=== PATIENT | female | born 1965 | race Caucasian/White ===

== ENCOUNTER → 2017-02-18 | Outpatient (CLI) | payer OTHER | LOC: FIMAGING 10:37 | PROVIDERS: ATTEND Obstetrics & Gynecology | DX: Z12.31 Encounter for screening mammogram for malignant neoplasm of breast (principal) | CPT/HCPCS: G0202 ==

== ENCOUNTER 2017-05-08 00:15 | Emergency (ER) | payer OTHER ==
[2017-05-08 00:26] VITALS: RESP 18
--- NOTE | 2017-05-08 01:17 | EDPHY ---
H & P Stated Complaint: TONIGHT: PAINFUL URINATION, NAUSEA,GROSS HEMATURIA Time Seen by Provider: 05/08/17 01:11 HPI/ROS: Chief Complaint: Urinary urgency frequency HPI: 51-year-old woman presenting with 1 day of increasing urgency and frequency and some hematuria. Has had some nausea but no vomiting. No fevers or chills. No back pain. No history of frequent UTIs in the past. ROS: 10 point Review of Systems is negative except as noted in the HPI. PMH: Bone Willebrand's disease, bipolar disorder, total abdominal hysterectomy Social History: No smoking, no alcohol, no recreational drug use Family History: non-contributory Physical Exam: Gen: Awake, Alert, No Distress HEENT: Nose: no rhinorrhea Eyes: PERRLA, EOMI Mouth: Moist mucosa Neck: Supple, no JVD Chest: nontender, lungs clear to auscultation Heart: S1, S2 normal, no murmur Abd: Soft, non-tender, no guarding Back: no CVA tenderness, no midline tenderness Ext: no edema, non-tender Skin: no rash Neuro: CN II-XII intact, Sensation grossly intact, Strength 5/5 in bilateral upper and lower extremities - Personal History LMP (Females 10-55): Hysterectomy Current Tetanus/Diphtheria Vaccine: Yes Tetanus Vaccine Date: 2014 - Medical/Surgical History Hx Asthma: No Hx Chronic Respiratory Disease: No Hx Diabetes: No Hx Cardiac Disease: No Hx Renal Disease: No Hx Cirrhosis: No Hx Alcoholism: No Hx HIV/AIDS: No Hx Splenectomy or Spleen Trauma: No Other PMH: UTERINE FIBROIDS,HERNIA, C-SSECT, PRGNANCY PSYCHOSIS, FX PELVIS WITH DELIVERY, HYSTERECOMY,. V[place]BRAN - FACTOR 8 BLEEDING DISORDER - Social History Smoking Status: Never smoked Constitutional: Initial Vital Signs Temperature (C) 36.6 C 05/08/17 00:19 Heart Rate 105 H 05/08/17 00:19 Respiratory Rate 18 05/08/17 00:19 Blood Pressure 176/135 H 05/08/17 00:19 O2 Sat (%) 99 05/08/17 00:19 O2 Delivery Mode Room Air Allergies/Adverse Reactions: azithromycin [From Zithromax] Allergy (Verified 05/08/17 00:19) doxycycline Allergy (Verified 05/08/17 00:19) Home Medications: Medication Instructions Recorded [place] Carbonate 05/08/17 Nitrofurantoin Monohyd/M-Cryst 100 mg PO BID #10 capsule 05/08/17 [Macrobid 100 mg Capsule] Phenazopyridine HCl [Pyridium] 200 mg PO TID #6 tab 05/08/17 Medical Decision Making - Data Points Laboratory Results: 05/08/17 00:30 Urine Color RED Urine Appearance HAZY Urine pH 7.0 (5.0-7.5) Ur Specific [place] 1.011 (1.002-1.030) Urine Protein 2+ H (NEGATIVE) Urine Ketones NEGATIVE (NEGATIVE) Urine Blood 2+ H (NEGATIVE) Urine Nitrate NEGATIVE (NEGATIVE) Urine Bilirubin NEGATIVE (NEGATIVE) Urine Urobilinogen NEGATIVE EU EU (0.2-1.0) Ur Leukocyte Esterase 1+ H (NEGATIVE) Urine RBC 50-182 /hpf H /hpf (0-3) Urine WBC 50-182 /hpf H /hpf (0-3) Ur Epithelial Cells TRACE /lpf /lpf (NONE-1+) Urine Bacteria 1+ /hpf H /hpf (NONE SEEN) Urine Glucose 1+ H (NEGATIVE) Departure - Departure Disposition: Home, Routine, Self-Care Clinical Impression: Urinary tract infection Condition: Good Instructions: Urinary Tract Infection in Women (ED), Nitrofurantoin Combination (By mouth) Additional Instructions: Please take her full course of antibiotics. Follow up with primary care physician in 4-5 days if symptoms are not improving. Referrals: Cris Mcmahon MD [Primary Care Provider] - As per Instructions Prescriptions: Nitrofurantoin Monohyd/M-Cryst [Macrobid 100 mg Capsule] 100 mg PO BID #10 capsule Phenazopyridine HCl [Pyridium] 200 mg PO TID #6 tab
[2017-05-08 01:25] LABS: COLOR RED; LEUKOCYTE ESTERASE,URINE 1+ (NEGATIVE); NITRITE,URINE NEGATIVE (NEGATIVE)
[2017-05-08 01:34] LABS: BACTERIA 1+ /hpf (NONE SEEN); RBC,URINE 50-182 /hpf (0-3); WBC,URINE 50-182 /hpf (0-3)
[2017-05-08] MEDS ORDERED: NITROFURANTOIN 100MG PREPACK#2 BTL TAKEHOME ONE (01:38)
[2017-05-08] MEDS ORDERED: PHENAZOPYRIDINE HCL 200 MG TAB PO ONE (01:39)
[2017-05-08 02:09] VITALS: BP 124/78; PULSE 62; TEMP 98.6; O2SAT 96
== END 2017-05-08 02:11 | disposition home or self-care (01) ==
DX: N39.0 Urinary tract infection, site not specified (principal); B96.89 Other specified bacterial agents as the cause of diseases classified elsewhere

== ENCOUNTER → 2017-10-16 | Outpatient (CLI) | payer OTHER | LOC: BMCIMAGING 12:12 | PROVIDERS: ATTEND Family Medicine | DX: M54.9 Dorsalgia, unspecified (principal); R07.81 Pleurodynia; W06.XXXA Fall from bed, initial encounter | CPT/HCPCS: 71101-PO ==

== ENCOUNTER → 2018-02-19 | Outpatient (CLI) | payer OTHER | LOC: FIMAGING 09:15 | PROVIDERS: ATTEND Obstetrics & Gynecology | DX: Z12.31 Encounter for screening mammogram for malignant neoplasm of breast (principal); Z80.3 Family history of malignant neoplasm of breast ==